=== PATIENT | female | born 1965 | race Caucasian/White ===

== ENCOUNTER → 2017-01-28 07:47 | Outpatient (CLI) | payer OTHER ==
[2017-01-29 10:18] LABS: ANA REFLEX - DIRECT Negative (Negative)
== END | disposition home or self-care (01) ==
LOC: D.RAD 07:47
PROVIDERS: Orthopaedic Surgery
DX: M75.92 Shoulder lesion, unspecified, left shoulder (principal); L13.8 Other specified bullous disorders

== ENCOUNTER 2017-04-18 08:43 | Day surgery (SDC) | payer OTHER ==
[~2017-04-18] VITALS: Ht 154.9 cm; Wt 136.4 kg
--- NOTE | ~2017-04-18 | OP ---
PATIENT NAME: ADDISON CONKLIN MEDICAL RECORD: [id number] :65 LOCATION:D.[id number] ADMISSION DATE: SURGEON: DARREN OLIVO MD DATE OF OPERATION: 04/18/2017 PREOPERATIVE DIAGNOSIS: Left parotid mass. POSTOPERATIVE DIAGNOSIS: Left parotid mass. PROCEDURE: Left superficial parotidectomy. SURGEON: Darren Olivo MD ANESTHESIA: General orotracheal. BLOOD LOSS: 2 cc. SPECIMENS: Left tail of parotid. DRAINS: A 10-Armenian IAN through a separate stab incision inferior to the wound. COMPLICATIONS: None. FROZEN SECTION DIAGNOSIS: Pleomorphic adenoma. DISPOSITION: Recovery stable. DESCRIPTION OF PROCEDURE: She was brought to the operating room and placed in supine position, sedated and intubated by anesthesia. The head was turned to the left and the entire face was prepped and draped in usual sterile fashion. The area of left parotidectomy incision was injected with a total of 1 cc of 1% lidocaine with 1:100,000 epinephrine on a long 27-gauge needle. Incision was made through the skin with a 15 blade. This was taken down to the sternocleidomastoid muscle inferiorly and to the parotid gland fascia superiorly. Double prong skin hooks were used and a Metzenbaum scissors to develop the flap anteriorly exposing the parotid gland and then dissected along the tragal cartilage with some Allis clamps on the parotid retracting it anteriorly. I then the parotid gland from the sternocleidomastoid inferiorly and dissected in front of the mastoid to expose the facial nerve. The most inferior branch of the parotid was dissected anteriorly and inferiorly and this crossed over the tail of the parotid, so when we were dissecting that free, the entire tumor mass was with the tail of the parotid, so that was sent separately for path. The remainder of the parotid was completely clean and free of any masses. The tail of the parotid was sent for frozen section, which returned pleomorphic adenoma. The entire mass and normal parotid around it had been removed, so the wound was irrigated. A drain was placed and the incision was closed with interrupted 4-0 Vicryl and 5-0 and 6-0 running and interrupted Prolene. A drain stitch with nylon was placed. She was awakened, extubated, and transported to recovery in good condition. No complications. TRANSINT:[id number] Voice Confirmation ID: [id number] DOCUMENT ID: [id number] OPERATIVE REPORT [id number] ADDISON CONKLIN ERIC MD at 0837 CC: [id number] DICTATION DATE: 04/18/17 153 WHISTLE PUNK: 04/18/17 1552 [facility] [address] [id number]
--- NOTE | ~2017-04-18 | HP ---
PATIENT: ADDISON CONKLIN MEDICAL RECORD: [id number] ACCOUNT: [id number] LOCATION:ANGELI[facility] : 65 ADMISSION DATE: 04/18/17 HISTORY AND PHYSICAL EXAMINATION HISTORY OF PRESENT ILLNESS: Ms. Conklin is a 51-year-old female with a left parotid mass. She is being admitted for left superficial parotidectomy. PAST MEDICAL HISTORY: Includes reactive airway disease. PAST SURGICAL HISTORY: Includes , hysterectomy, tonsillectomy. CURRENT MEDICATIONS: Meloxicam. ALLERGIES: No known drug allergies. PHYSICAL EXAMINATION: GENERAL: Healthy-appearing. FACE: Normal, symmetric, no lesions. EYES: Sclerae and conjunctivae are normal. EARS: Canals and TMs are normal. NOSE: No mass, polyps or drainage. ORAL CAVITY AND OROPHARYNX: No trismus. Tongue protrudes in the midline. NECK: A 2-1/2 cm mass in the inferior parotid gland on the left side. CHEST: Clear. CARDIOVASCULAR: Regular rate and rhythm. No murmur. EXTREMITIES: Normal. IMPRESSION: Left parotid mass. PLAN: Left superficial parotidectomy. TRANSINT:[id number] Voice Confirmation ID: [id number] DOCUMENT ID: [id number] ANGIE STEEN MD at 1145 CC: [id number] DICTATION DATE: 04/17/17901 SEXUAL ABUSE COUNSELLOR: 04/17/17 0933 [facility] [address] [place] [address]
[2017-04-18 09:46] VITALS: BP 138/74; BMI 58.7
[2017-04-18 16:49] VITALS: BP 148/60
[2017-04-18 16:52] VITALS: Ht 154.9 cm; Wt 136.4 kg
[2017-04-18 17:23] VITALS: BP 139/67
[2017-04-18 17:59] LABS: HEMATOCRIT 41.9 % (36.0-48.0); HEMOGLOBIN 14.3 g/dL (12-16); MCH 31.1 pg (26.0-34.0); MCHC 34.1 g/dL (31.0-37.0); MCV 91.1 fL (80.0-100.0); MEAN PLATELET VOLUME 9.5 fL (7.4-10.4); RBC 4.6 10x6/uL (4.00-5.40); RDW 13.2 % (11.5-14.5); WBC 10.8 10x3/uL (4.8-10.8)
[2017-04-18 20:00] VITALS: BP 138/73
[2017-04-19 04:00] VITALS: BP 109/57
[2017-04-19 09:19] VITALS: BP 146/76
== END 2017-04-19 11:10 | disposition home or self-care (01) ==
LOC: D.MS 08:43 → D.PAN 08:43 → D.MS 16:18 → D.PAN 04-19 11:10
PROVIDERS: Anesthesiology
DX: D11.0 Benign neoplasm of parotid gland (principal); F17.200 Nicotine dependence, unspecified, uncomplicated; J45.909 Unspecified asthma, uncomplicated; E66.01 Morbid (severe) obesity due to excess calories; Z68.43 Body mass index [BMI] 50.0-59.9, adult; Z01.812 Encounter for preprocedural laboratory examination

== ENCOUNTER 2017-07-18 08:32 | Outpatient (CLI) | payer OTHER ==
[~2017-07-18] VITALS: Ht 154.9 cm; Wt 136.1 kg
--- NOTE | ~2017-07-18 | OP ---
PATIENT NAME: ADDISON CONKLIN MEDICAL RECORD: [id number] :65 LOCATION:JAN ADMISSION DATE: SURGEON: ROBERT BLACKBURN MD DATE OF OPERATION: 07/18/2017 PREOPERATIVE DIAGNOSES: 1. Calcific tendinopathy of the left shoulder. 2. Impingement syndrome of the left shoulder. POSTOPERATIVE DIAGNOSES: 1. Calcific tendinopathy of the left shoulder. 2. Impingement syndrome of the left shoulder. 3. Biceps tendinitis. PROCEDURES: 1. Arthroscopic rotator cuff repair. 2. Arthroscopic distal clavicle excision done through separate incision -- 1 cm. 3. Arthroscopic subacromial decompression with acromioplasty and bursectomy. 4. Biceps tenolysis (release). SURGEON: Robert Blackburn MD SOLID TIRE FINISHER SURGEON: Faraz Hoang MD ANESTHESIA: General with a preoperative interscalene block. INTRAOPERATIVE COMPLICATIONS: None. SUMMARY OF PATHOLOGIC FINDINGS: The patient had a very large calcific tendinopathic lesion at the insertion of the supraspinatus tendon anteriorly. Furthermore, the patient had a mildly downward sloping acromion, also had thickening and changes of the coracoacromial ligament as well as chondromalacia and osteophytes of the acromioclavicular joint. It is of note that the glenohumeral joint itself was in excellent condition and no evidence of the calcific tendinitis could be seen from the undersurface; however, when it was debrided from above the thickness of the residual rotator cuff was less than 10%. Therefore, rotator cuff repair was necessary. INDICATIONS: Ms. Conklin is a 52-year-old female who has had severe pain in her left shoulder. Radiographs taken in the clinic showed an area of calcific tendinopathy and MRI confirmed this. The MRI was used intraoperatively to locate the calcific tendinopathy and the large area of calcium deposition and after it was removed as stated above, a large void in the rotator cuff was left and required fixation. OPERATIVE SUMMARY IN DETAIL: After obtaining the appropriate preoperative orthopedic surgery consent as well as anesthetic consultation, evaluation, and clearance, the patient was brought to the operating room and placed on the operating table in supine position. After general laryngeal mask airway was administered, the patient was placed in a right lateral decubitus position. All pressure points were well padded to include down leg peroneal pad as well as axillary roll. The patient was held firmly to the operating table using the vacuum pack suction system. Left upper extremity and shoulder were prepped and draped in routine sterile fashion. The arm was held in the Arthrex traction boom at 30 degrees of forward flexion, 30 degrees of abduction with 10 pounds of OPERATIVE REPORT [id number] ADDISON CONKLIN traction laterally. Arthroscopy was established in the glenohumeral joint from a posterior portal. Anterior portal was established in the anterior safe interval under direct arthroscopic visualization. Diagnostic arthroscopy was done. The patient had some mild labral fraying. This was very gently debrided. The patient was found to have substantial biceps tendinitis with adhesions at the superior aspect of the bicipital groove. At this point, the surface tissue ablation system was utilized to release the biceps tendon at the bicipital labral junction. Having completed this, arthroscopy was established in the subacromial space. The subacromial space was quite hard to get established as this patient has a BMI of about 60. Under direct arthroscopic visualization, the undersurface of the acromion was directly visualized. The [place] tissue ablation system was utilized to denude the undersurface of the acromion of all soft tissue elements and released coracoacromial ligament. Next, attention was turned to the distal clavicle. Through a separate arthroscopic anterior portal, distal clavicle was excised for 1 cm. The inferior osteophytes were removed. Next, attention was turned to the calcific tendinopathy. After studying the MRI intraoperatively, the calcific tendinopathy area was eventually discovered. It was below the surface of the rotator cuff and it was substantially more solid than the usual. A 4.0 resector was utilized to debride the entire cavitary area. After this was all done, probe inspection showed that there were very few fibers of the rotator cuff left and it was very thin. For this reason, the decision was made to proceed with rotator cuff repair. At this point with the assistance of Dr. Hoang, both running the camera and the inflow scorpion needle from Arthrex was used to pass a FiberTape in an inverted mattress fashion. This was then anchored down laterally with a 5.5 SwiveLock from [employer] resulting in excellent coverage of the area in question. Having completed this and fully resecting all the subacromial bursa, the arthroscopy portals 6 in number were closed using 4-0 Prolene in routine interrupted fashion. Sterile dressings were applied. The patient was awakened and taken to recovery room in stable condition. All final needle, instrument, and sponge count was correct. TRANSINT:[id number] Voice Confirmation ID: [id number] DOCUMENT ID: [id number] BERE TARANGO, ROBERT SCHWARTZ at 0942 CC: [id number] DICTATION DATE: 07/18/17 1430 WEB APPLICATION TESTER: 07/18/17 2150 [facility] [place] 07/18/[id number] [place] [address]
[2017-07-18 09:35] LABS: HEMATOCRIT 41.5 % (36.0-48.0); HEMOGLOBIN 14.1 g/dL (12-16); MCH 30.9 pg (26.0-34.0); MEAN PLATELET VOLUME 9.3 fL (7.4-10.4); RBC 4.56 10x6/uL (4.00-5.40); RDW 13.2 % (11.5-14.5)
[2017-07-18 09:51] VITALS: BP 169/89; Ht 154.9 cm; Wt 136.1 kg
[2017-07-18] MEDS ORDERED: HYDROCODONE-APA1 TAB PO (14:24)
== END 2017-07-18 20:21 | disposition home or self-care (01) ==
LOC: D.OPS 08:32 → EDSTATUS 10:15 → D.OPS 10:15 → D.PAN 10:15 → D.OPS 10:55 → D.PAN 10:55 → D.OPS 11:15
PROVIDERS: Anesthesiology
DX: M75.32 Calcific tendinitis of left shoulder (principal); M75.42 Impingement syndrome of left shoulder; M75.22 Bicipital tendinitis, left shoulder; M94.212 Chondromalacia, left shoulder; Z01.812 Encounter for preprocedural laboratory examination